=== PATIENT | female | born 1990 | race Caucasian/White ===

== ENCOUNTER 2019-05-11 20:08 | Emergency (ER) | payer OTHER ==
[2019-05-11] MEDS ORDERED: Lidocaine 1% INJ* 10 MG/ML 30 ML SDV INJ ONE (20:44)
--- NOTE | 2019-05-11 20:53 | ED ---
Laceration/Wound HPI - HPI Summary HPI Summary: 28-year-old female presents with right leg laceration due to a dog bite. She is watching her friend's dog when she went to break up a dogfight.. The dog is up-to-date on his rabies. 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 She is able to ambulate. Denies any numbness tingling. Tetanus up-to-date. Has no medical conditions. area not actively bleeding. no foreign body - History of Current Complaint Stated Complaint: DOG BITE PER PT Time Seen by Provider: 05/11/19 20:21 Pain Intensity: 3 - Allergy/Home Medications Allergies/Adverse Reactions: Allergies Allergy/AdvReac Type Severity Reaction Status Date / Time No Known Allergies Allergy Verified 05/11/19 20:13 PMH/Surg Hx/FS Hx/Imm Hx Endocrine/Hematology History: Denies: Hx Anticoagulant Therapy Respiratory History: Denies: Hx Asthma - Immunization History Immunizations Up to Date: Yes Infectious Disease History: No Infectious Disease History: Denies: Traveled Outside the [place] in Last 30 Days - Family History Known Family History: Positive: Non-Contributory - Social History Alcohol Use: Weekly Substance Use Type: Reports: None Smoking Status (MU): Never Smoked Tobacco Review of Systems Negative: Fever Negative: Chest Pain Negative: Shortness Of Breath Positive: Myalgia - right calf laceration All Other Systems Reviewed And Are Negative: Yes Physical Exam Triage Information Reviewed: Yes Vital Signs On Initial Exam: Initial Vitals Temp Pulse Resp BP Pulse Ox 99.8 F 83 18 118/79 100 05/11/19 20:13 05/11/19 20:13 05/11/19 20:13 05/11/19 20:13 05/11/19 20:13 Vital Signs Reviewed: Yes Appearance: Positive: Well-Appearing Skin: Positive: Warm, Dry, Other - 5cm by 2 cm triangular laceration of right calf, 1 cm by half centimeter laceration of right calf Head/Face: Positive: Normal Head/Face Inspection Eyes: Positive: Normal, Conjunctiva Clear ENT: Positive: Pharynx normal Respiratory/Lung Sounds: Positive: Clear to Auscultation, Breath Sounds Present Cardiovascular: Positive: Normal, RRR Musculoskeletal: Positive: Strength/ROM Intact - right calf, Other - good pulses Neurological: Positive: Normal Psychiatric: Positive: Normal Procedures - Laceration/Wound Repair 1 Location: Other - right leg Description: Irregular Length, Depth and Shape: 5cm by 2cm triangular Irrigated w/ Saline (ccs): 500 Closure: Single Layer Suture Type: Prolene Number of Sutures: 8 - 3 vertical mattress 2 Location: Other - right leg Description: Linear Length, Depth and Shape: 1cm by 1/2cm Irrigated w/ Saline (ccs): 100 Suture Type: Prolene Number of Sutures: 1 Diagnostics - Vital Signs Vital Signs Temp Pulse Resp BP Pulse Ox 05/11/19 20:13 99.8 F 83 18 118/79 100 - Laboratory Lab Statement: Any lab studies that have been ordered have been reviewed, and results considered in the medical decision making process. Laceration Repair Course/Dx - Course Course Of Treatment: 28-year-old female presents with right leg laceration due to a dog bite. She is watching her friend's dog when she went to break up a dogfight.. The dog is up-to-date on his rabies. 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 She is able to ambulate. Denies any numbness tingling. Tetanus up-to-date. Has no medical conditions. On exam has 5 cm x 2 cm triangular laceration of right leg with 1cm laceration on the other side of the right leg. cleaned area extensively. Placed 8 sutures in the larger laceration. Place [address] Will place patient on Augmentin. Told to keep area clean and dry. Told if develop any signs of infection to return. Patient understands agrees with plan. - Differential Dx Differental Diagnoses: Abrasion, Avulsion, Laceration - Clinical Impression Provider Diagnoses: Laceration of left leg, Dog bite Discharge - Sign-Out/Discharge Documenting (check all that apply): Patient Departure Patient Received Moderate/Deep Sedation with Procedure: No - Discharge Plan Condition: Good Disposition: HOME Prescriptions: Amoxicillin/Clavulanate TAB* [Augmentin TAB 875*] 875 mg PO BID #9 tab Patient Education Materials: Care For Your Stitches (ED) Referrals: No Primary Care Phys,NOPCP [Primary Care Provider] - Additional Instructions: Take Tylenol or ibuprofen for pain every 6 hours as needed take augmentin twice a day for 5 days apply ice keep covered Return to ED or primary in 8-10 days to have sutures removed Return to ED if develop signs of infection such as fever, spreading redness, or pus. - Billing Disposition and Condition Condition: GOOD Disposition: Home
[2019-05-11] MEDS ORDERED: Amoxicillin/Clavulanate TAB* 875 MG PO ONE (21:34)
[2019-05-11 21:57] VITALS: BP 118/75
== END 2019-05-11 21:56 | disposition home or self-care (01) ==
LOC: ED 20:08
DX: S81.851A Open bite, right lower leg, initial encounter (principal); W54.0XXA Bitten by dog, initial encounter
CPT/HCPCS: 12002; 96372; 99282; A9270-GY